=== PATIENT | female | born 1950 | race Caucasian/White ===

== ENCOUNTER 2016-08-23 21:58 | Emergency (ER) | payer OTHER, MEDICARE ==
[2016-08-23 22:15] VITALS: BP 133/60; PULSE 92; RESP 18; TEMP 100; O2SAT 96
--- NOTE | 2016-08-23 22:32 | UCPHY ---
H & P Time Seen by Provider: 08/23/16 22:19 Patient Type: Established HPI/ROS: CHIEF COMPLAINT: fever, not eating much, fatigued HISTORY OF PRESENT ILLNESS: Patient is a 65-year-old female who presents to the emergency department with ongoing fatigue. The patient first became ill last week. She states numerous members of her family including her grandchildren had the "vomit comet" last week prior to getting sick. The patient had initial nausea and dry heaves on night. Monday she had decreased appetite. Later that night she developed 2 hour period of diarrhea. She felt a bit better over the weekend Monday. However on Monday she felt chilled. She took her temperature was 99. Today she again had mild chills and her temperature was 101. Patient denies any abdominal pain. She has no further nausea or vomiting. No current diarrhea. The patient denies dysuria or frequency. She has no headache or sore throat. No other specific complaints other than mild fatigue and decreased appetite. REVIEW OF SYSTEMS: My complete review of systems is negative except as mentioned in the HPI. Past Medical/Surgical History: Includes prediabetes, retinal hemorrhage Past surgical history: Includes cholecystectomy Social history: The patient does not smoke Smoking Status: Never smoked Physical Exam: 133/60, 92, 18, 37.8, 96% on room air GENERAL: Well-appearing, in no acute distress, alert. HEENT: Eyes normal to inspection, normal pharynx, no signs of dehydration. NECK: No thyromegaly, no lymphadenopathy, supple. RESPIRATORY: Clear to auscultation bilaterally, no rales, rhonchi or wheezing. CVS: Regular rate and rhythm, no rubs, murmurs, or gallops. ABDOMEN: Soft, nontender, nondistended, no organomegaly. Benign BACK: Normal to inspection, no CVA tenderness. SKIN: Normal color, no rash, warm, dry. No pallor. EXTREMITIES: No pedal edema, no calf tenderness, no joint swelling. NEURO/PSYCH: Alert and oriented x3, normal mood and affect, normal motor sensory exam. Constitutional: Initial Vital Signs Temperature (C) 37.8 C 08/23/16 22:07 Heart Rate 92 08/23/16 22:07 Respiratory Rate 18 08/23/16 22:07 Blood Pressure 133/60 H 08/23/16 22:07 O2 Sat (%) 96 08/23/16 22:07 O2 Delivery Mode Room Air Allergies/Adverse Reactions: azithromycin Allergy (Verified 07/29/15 12:37) cider vinegar [vinegar] Allergy (Verified 08/23/16 22:07) quynh Allergy (Verified 08/23/16 22:07) peanut Allergy (Verified 07/29/15 12:37) shellfish derived Allergy (Verified 07/29/15 12:37) tree nut Allergy (Verified 08/23/16 22:07) turmeric Allergy (Verified 08/23/16 22:07) Home Medications: Medication Instructions Recorded Cephalexin [Keflex (*)] 500 mg PO QID 5 Days 08/23/16 Imodium 2 mg (*) 08/23/16 Losartan/Hydrochlorothiazide 08/23/16 [Losartan-Hctz 50-12.5 mg Tab] Synthroid 08/23/16 Medical Decision Making ED Course/Re-evaluation: I discussed possible etiologies with the patient. Patient's physical exam was unremarkable. The patient has no specific complaints other than fatigue and decreased appetite. Although she has no dysuria or frequency was concerned that a UTI could be causing her symptoms. UA was ordered. Because the patient feels well and not feel further laboratory studies would be helpful. She has no shortness of breath cough. I do not feel she needs chest x -ray. Her abdomen is completely benign. I do not feel she needs imaging. UA: The patient has positive leuk esterase and nitrites. Patient was given Keflex 4 pack upon discharge. She was given a prescription for Keflex. She will take her entire course of antibiotics. I discussed this with the patient. She will follow up with Dr. Hodges tomorrow. She was given warnings prior to leaving. She will return with worsening symptoms. Differential Diagnosis: My differential includes but is not limited to bacteremia, sepsis, urinary tract infection, influenza, pneumonia, viral illness - Data Points Laboratory Results: 08/23/16 22:30 Urine Color YELLOW Urine Appearance CLOUDY Urine pH 5.5 (5.0-7.5) Ur Specific [place] <= 1.005 (1.002-1.030) Urine Protein NEGATIVE (NEGATIVE) Urine Ketones NEGATIVE (NEGATIVE) Urine Blood TRACE H (NEGATIVE) Urine Nitrate POSITIVE H (NEGATIVE) Urine Bilirubin NEGATIVE (NEGATIVE) Urine Urobilinogen 0.2 EU EU (0.2-1.0) Ur Leukocyte Esterase 2+ H (NEGATIVE) Urine RBC Pending Urine WBC Pending Ur Epithelial Cells Pending Ur Culture Indicated? INDICATED H (NI) Urine Glucose NEGATIVE (NEGATIVE) Departure - Departure Disposition: Home, Routine, Self-Care Clinical Impression: Appetite loss Fever Qualifiers: Fever type: unspecified Qualified Code(s): R50.9 - Fever, unspecified Condition: Good Instructions: Fever in Adults (ED), Viral Syndrome (ED) Additional Instructions: You need close follow-up with your doctor tomorrow. Return to the emergency department with worsening fever, shortness of breath, chest pain, abdominal pain , worsening nausea, vomiting or diarrhea. Referrals: Traci Hodges MD [Primary Care Provider] - As per Instructions Prescriptions: Cephalexin [Keflex (*)] 500 mg PO QID 5 Days - PQRS PQRS Measurement: My PQRS negative my PQRS negative my PQRS negative my PQRS negative 134: Depression screening and followup, PRIME MD-PHQ2 (12 years and older) Over the last 2 weeks, how often have you been bothered by any of the following problems? 1. Feeling down, depressed, or hopeless? 2. Little interest or pleasure in doing things? Patient answered no to both 1 and 2 130: Documentation of medications. Reviewed all patient medications, doses, route and frequency. 226: Do you smoke? No.
[2016-08-23 22:45] LABS: COLOR YELLOW; LEUKOCYTE ESTERASE,URINE 2+ (NEGATIVE); NITRITE,URINE POSITIVE (NEGATIVE); PH,URINE 5.5 (5.0-7.5)
[2016-08-23] MEDS ORDERED: CEPHALEXIN 500MG PREPACK#4 BTL TAKEHOME ONE (22:47)
[2016-08-23 22:48] LABS: WBC,URINE 25-50 /hpf (0-3)
[2016-08-23 22:49] LABS: BACTERIA 3+ /hpf (NONE SEEN); MUCUS 1+ /lpf (NONE-1+); RBC,URINE OCCASIONAL /hpf (0-3)
== END 2016-08-23 23:07 | disposition home or self-care (01) ==
LOC: CED 21:58
DX: R50.9 Fever, unspecified (principal); R63.0 Anorexia
CPT/HCPCS: 81003-PO; 81015-PO; 99214-PO; G0463-PO

== ENCOUNTER 2016-11-23 21:15 | Emergency (ER) | payer OTHER, MEDICARE ==
--- NOTE | 2016-11-23 21:27 | EDPHY ---
H & P Smoking Status: Never smoked Time Seen by Provider: 11/23/16 21:24 HPI/ROS: CHIEF COMPLAINT: "just make it stop hurting" pain in the left groin HISTORY OF PRESENT ILLNESS: 66-year-old woman presents with pain in her leg. She has been walking on it a lot lately and pain started on Monday but then got better. She has been by her own report "chasing a 1 year old around." Tonight pain worsened and reoccurred, was much worse after 5:00 p.m.. She states that it is in her left groin and radiates down her left thigh toward her knee. It is worse with movement and walking. It is not associated with weakness or numbness in the foot. Symptoms severe in the ED. Does not recall any fall or direct trauma. She describes the pain really being intermittent and she says it is "like labor " in that it will become suddenly very severe and then it will decrease in intensity. REVIEW OF SYSTEMS: Eye: no change in vision ENT: no sore throat Cardiac: no chest pain or syncope Pulmonary: no cough or SOB Abdomen: no vomiting, diarrhea, abdominal pain Musculoskeletal: no back pain Skin: no rash or laceration Neuro: no headache Constitutional: no fever : no urinary symptoms A comprehensive 10 point review of systems is otherwise negative aside from elements mentioned in the history of present illness. PAST MEDICAL HISTORY: 08/23/16 visit reviewed: Cholecystectomy, "pre diabetes", retinal hemorrhage Social history: Here with her daughter General Appearance: Alert and conversant, cooperative. Eyes: No scleral icterus. ENT, Mouth: Normal mucous membranes. Respiratory: Normal respiratory effort, breath sounds equal, lungs are clear to auscultation. Cardiovascular: Regular rate and rhythm. Normal dorsalis pedis pulses and capillary refill in each foot. Gastrointestinal: Abdomen is soft and non tender. Not distended, no pulsatile mass. Neurological: Alert and oriented x3. Normally conversant. Face symmetric, normal movement and sensation in all extremities. Patellar reflexes 2+ bilaterally. Skin: Warm and dry, no rashes. No skin change in appearance or temperature on the left leg. No zoster. Musculoskeletal: No spinal tenderness. No pelvic tenderness. She does have pain in her left groin with rotation. Compartments are soft in the thigh and calf. There is mild tenderness to palpation in the thigh but none in the calf. Psychiatric: Not agitated. Emergency Department course/MDM: X-ray of the left hip and femur, Zofran ODT and oral hydrocodone. 2010: X-rays personally interpreted are negative of the left hip and femur for fracture. Patient re-examined at this time is more comfortable after pain medication. She does not have any pain at this time on axial loading but a little bit of pain in the groin on internal rotation. At this time plan for left leg ultrasound and noncontrast left hip CT, will discharge with likely muscle strain if both are negative. I think it is unlikely that she has acute infection or compartment syndrome or arterial occlusion. (Lily Foreman) Constitutional: Initial Vital Signs Temperature (C) 36.6 C 11/23/16 21:33 Heart Rate 85 11/23/16 21:33 Respiratory Rate 16 11/23/16 21:33 Blood Pressure 153/82 H 11/23/16 21:33 O2 Sat (%) 95 11/23/16 21:33 O2 Delivery Mode Room Air Allergies/Adverse Reactions: Tetanus Vaccines and Toxoid Allergy (Severe, Verified 11/23/16 21:38) Swelling/neck,face,throat azithromycin Allergy (Verified 07/29/15 12:37) cider vinegar [vinegar] Allergy (Verified 08/23/16 22:07) quynh Allergy (Verified 08/23/16 22:07) peanut Allergy (Verified 07/29/15 12:37) shellfish derived Allergy (Verified 07/29/15 12:37) tree nut Allergy (Verified 08/23/16 22:07) turmeric Allergy (Verified 08/23/16 22:07) Home Medications: Medication Instructions Recorded Imodium 2 mg (*) 08/23/16 Losartan/Hydrochlorothiazide 08/23/16 [Losartan-Hctz 50-12.5 mg Tab] Synthroid 08/23/16 Methocarbamol [Robaxin 750 mg (*)] 750 - 1,500 mg PO QID PRN #30 tab 11/23/16 Medical Decision Making - Diagnostics Imaging Results: Imaging Impressions Femur X-Ray 11/23/16 21:39 Impression: 1. Severe knee osteoarthritis. 2. No fracture or bone lesion. Hip X-Ray 11/23/16 21:39 Impression: Mild osteoarthritis. No fracture or bone lesion. Extremity CT 11/23/16 22:10 Impression: 1. No acute fracture or bone lesion. Mild osteoarthritis. 2. Sigmoid diverticulosis. Findings discussed with Emergency Department physician, LILY FOREMAN at 2016 22:45. Extremity Venous Study 11/23/16 22:10 Impression: Negative. No deep venous thrombosis. Findings discussed with Emergency Department physician, Dr. Patel Campbell at 11/23/2016 23:45. CT negative for fracture reviewed with Vinod at 10:50 p.m. (Lily Foreman) I spoke with Dr. Agustín Brock-radiologist regarding the patient's Doppler ultrasound of the left lower extremity which is negative for DVT (Patel Campbell) ED Course/Re-evaluation: This patient is signed over to me at 11:00 p.m. by doctor Stephen with Doppler ultrasound left lower extremity pending. I met the patient shortly after 11:00 p.m. and she reports partial relief of her discomfort from 2 oxycodone/Tylenol. She states that she still feels some discomfort but "does not care." I counseled the patient regarding her negative Doppler ultrasound and counseled her regarding muscle strain of the psoas and other thigh muscles, as Dr. Mitchell & I both think that after her negative workup with imaging the ruled out DVT, fracture, bony lesion, vascular or other significant abnormalities, muscle strain is the most likely cause of this patient's current ailment. The patient was able to ambulate from the department without assist, accompanied by her daughter. (Patel Campbell) Differential Diagnosis: Differential considered including but not limited to fracture, hip dislocation, compartment syndrome, arterial occlusion, DVT. (Lily Foreman) - Data Points Medications Given: Discontinued Medications Hydrocodone Bitart/Acetaminophen ([place] 5/325) 1 tab PO EDNOW ONE Stop: 11/23/16 21:40 Last Admin: 11/23/16 21:43 Dose: 1 tab Hydrocodone Bitart/Acetaminophen ([place] 5/325mg Prepack#6) 1 btl TAKEHOME EDNOW ONE Stop: 11/23/16 22:12 Last Admin: 11/23/16 23:45 Dose: 1 btl Hydrocodone Bitart/Acetaminophen ([place] 5/325) 1 tab PO EDNOW ONE Stop: 11/23/16 22:34 Last Admin: 11/23/16 22:41 Dose: 1 tab Ondansetron HCl (Zofran Odt) 4 mg PO EDNOW ONE Stop: 11/23/16 21:40 Last Admin: 11/23/16 21:43 Dose: 4 mg Ondansetron HCl (Zofran Odt 4 Mg Prepack#2) 1 btl TAKEHOME EDNOW ONE Stop: 11/23/16 22:12 Last Admin: 11/23/16 23:46 Dose: 1 btl Departure - Departure Disposition: Home, Routine, Self-Care Clinical Impression: Leg pain, left Condition: Good Instructions: Hydrocodone/Acetaminophen (By mouth), Ondansetron (By mouth), Muscle Strain (ED), Leg Pain (ED) Additional Instructions: Diagnosis: Thigh. muscle strain Plan: Tylenol and/or Vicodin for pain control as needed. Methocarbamol muscle relaxant in addition. No driving, alcohol or come methocarbamol Stool softener while taking the hydrocodone/Tylenol Follow up with primary care physician Return for any significant worsening despite the treatment plan Referrals: Traci Hodges MD [Primary Care Provider] - As per Instructions Derrick Adame MD [Medical Doctor] - 2-3 days, if not improved (ortho referral if not improving) Prescriptions: Methocarbamol [Robaxin 750 mg (*)] 750 - 1,500 mg PO QID PRN #30 tab PRN Reason: Muscle Spasms
[2016-11-23] MEDS ORDERED: HYDROCODONE/APAP 5/325 TAB PO ONE ×2 (21:39→22:33)
[2016-11-23] MEDS ORDERED: ONDANSETRON DISINTEGRATING 4 MG TAB PO ONE (21:39)
[2016-11-23] MEDS ORDERED: ONDANSETRON 4MG PREPACK#2 BTL TAKEHOME ONE (22:11)
[2016-11-23] MEDS ORDERED: HYDROCOD/APAP 5/325 PREPACK#6 BTL TAKEHOME ONE (22:11)
[2016-11-24 00:05] VITALS: BP 133/82; PULSE 78; RESP 18; TEMP 98.1; O2SAT 92
== END 2016-11-24 00:03 | disposition home or self-care (01) ==
LOC: CED 21:15
DX: M79.605 Pain in left leg (principal); Z91.010 Allergy to peanuts
CPT/HCPCS: 73502-PO; 73551-PO; 73700-PO; 93971-PO

== ENCOUNTER 2016-11-26 20:29 | Emergency (ER) | payer OTHER, MEDICARE ==
[2016-11-26 20:36] VITALS: TEMP 99
--- NOTE | 2016-11-26 21:03 | EDPHY ---
H & P Time Seen by Provider: 11/26/16 20:51 HPI/ROS: CHIEF COMPLAINT: Left groin pain HISTORY OF PRESENT ILLNESS: Patient is a 66-year-old female who presents to the emergency department with ongoing left hip pain. She was seen at urgent care earlier in the week and her primary care physician yesterday for the same pain. Patient states her pain started approximately 1 week ago. She was able to go to her normal spinning class but felt increasing discomfort. On Monday she had difficulty with walking due to the pain. She was seen in urgent care and at that time had a negative ultrasound, negative CT scan, and negative x-ray except for osteoarthritis. She was originally placed on hydrocodone and Flexeril. This made her have multiple episodes of vomiting. When she saw her primary care physician yesterday she was switched to Tylenol 3. She is due to take her medications at this time. She describes moderate left groin pain. It is not worse with movement. She has pain with ambulation. She denies fevers or chills. No foot numbness or tingling REVIEW OF SYSTEMS: My complete review of systems is negative except as mentioned in the HPI. Past Medical/Surgical History: Includes hypertension, hypothyroidism, IBS, [id number] diabetes mellitus Past surgical history: Cholecystectomy Social: Patient does not smoke Smoking Status: Never smoked Physical Exam: 37.2, 130/81, 87, 17, 92% GENERAL: Well-appearing, in no acute distress, alert. HEENT: Eyes normal to inspection, normal pharynx, no signs of dehydration. NECK: No thyromegaly, no lymphadenopathy, supple. RESPIRATORY: Clear to auscultation bilaterally, no rales, rhonchi or wheezing. CVS: Regular rate and rhythm, no rubs, murmurs, or gallops. ABDOMEN: Soft, nontender, nondistended, no organomegaly. Benign Groin: Patient's left groin has an erythematous rash. There are mild papules. No ulcerations. The patient states she did use a heating pad in this location BACK: Normal to inspection, no CVA tenderness. SKIN: Normal color, warm, dry. No pallor. The left groin as above EXTREMITIES: No pedal edema, no calf tenderness, no Homans sign or cords, no joint swelling. NEURO/PSYCH: Alert and oriented, normal mood and affect, normal motor sensory exam. Constitutional: Initial Vital Signs Temperature (C) 37.2 C 11/26/16 20:31 Heart Rate 87 11/26/16 20:31 Respiratory Rate 17 11/26/16 20:31 Blood Pressure 130/81 H 11/26/16 20:31 O2 Sat (%) 92 11/26/16 20:31 O2 Delivery Mode Room Air Allergies/Adverse Reactions: Tetanus Vaccines and Toxoid Allergy (Severe, Verified 11/23/16 21:38) Swelling/neck,face,throat azithromycin Allergy (Verified 07/29/15 12:37) cider vinegar [vinegar] Allergy (Verified 08/23/16 22:07) quynh Allergy (Verified 08/23/16 22:07) peanut Allergy (Verified 07/29/15 12:37) shellfish derived Allergy (Verified 07/29/15 12:37) tree nut Allergy (Verified 08/23/16 22:07) turmeric Allergy (Verified 08/23/16 22:07) Home Medications: Medication Instructions Recorded Imodium 2 mg (*) 08/23/16 Losartan/Hydrochlorothiazide 08/23/16 [Losartan-Hctz 50-12.5 mg Tab] Synthroid 08/23/16 Methocarbamol [Robaxin 750 mg (*)] 750 - 1,500 mg PO QID PRN #30 tab 11/23/16 Medical Decision Making ED Course/Re-evaluation: In the emergency department I discussed possible etiologies with the patient. I answered all her questions. I reviewed the patient's previous imaging studies. She had no acute disease noted in her left hip and left femur x-rays, left hip CT and US. An IV was placed. The patient was given fentanyl 25 mcg IV , Toradol 30 mg IV, Solu-Medrol 125 mg IV. I was concerned the patient could have zoster. Is on a dermatome pattern left groin. This could cause her pain. However, her symptoms did start 1 week ago. She will be given Solu-Medrol in the emergency department along with pain medication. I do not think she needs valacyclovir. At this time I do not feel the patient needs further imaging. Patient has no discomfort with passive movement of her left hip. I doubt septic joint. Differential Diagnosis: My differential includes but is not limited to septic joint, fracture, dislocation, contusion, sprain, strain, disc herniation, zoster Departure - Departure Disposition: Home, Routine, Self-Care Clinical Impression: Left groin pain Condition: Good Instructions: Groin Pain (ED), Shingles (ED) Referrals: Traci Hodges MD [Primary Care Provider] - 2-3 days, if not improved
[2016-11-26] MEDS ORDERED: KETOROLAC 30 MG/1 ML SDV IVP ONE (21:37)
[2016-11-26] MEDS ORDERED: fentaNYL 100 MCG/2 ML INJ IVP ONE (21:37)
[2016-11-26] MEDS ORDERED: methylPREDNISolone SOD SUCC 125 MG/2 ML VIAL IVP ONE (21:38)
[2016-11-26 22:27] VITALS: BP 160/88; PULSE 77; RESP 16; O2SAT 96
[2016-11-26] MEDS ORDERED: LIDOCAINE 5% 1 EA PATCH TD ONE (22:43)
[2016-11-27] MEDS ORDERED: LIDOCAINE 5% 1 EA PATCH TD SCH (09:00)
[2016-11-27] MEDS ORDERED: PATCH REMOVAL 1 EA PATCH TD SCH (21:00)
== END 2016-11-26 22:26 | disposition home or self-care (01) ==
DX: R10.30 Lower abdominal pain, unspecified (principal); I10 Essential (primary) hypertension; E11.9 Type 2 diabetes mellitus without complications; Z90.49 Acquired absence of other specified parts of digestive tract; Z91.010 Allergy to peanuts
CPT/HCPCS: 96374; 96375; 99284; J1885; J3010